=== PATIENT | female | born 1950 | race Two or more races ===

== ENCOUNTER 2017-01-28 12:45 | Inpatient (IN) | payer BC ==
[~2017-01-28] VITALS: Ht 160 cm; Wt 82.0 kg
[2017-01-28 12:57] VITALS: TEMP 98.4
[2017-01-28] MEDS ORDERED: SOD CHLORIDE 0.9% 1,000 ML IV STA ×2 (13:00→15:45)
[2017-01-28] MEDS ORDERED: DIPHENHYDRAMINE 50 MG INJ IV STA (13:00)
[2017-01-28] MEDS ORDERED: FAMOTIDINE 20 MG INJ IV ONE (13:00)
[2017-01-28] MEDS ORDERED: METHYLPREDNISOLONE 125 MG INJ IV STA (13:00)
[2017-01-28] MEDS ORDERED: ATEN50TA PO (13:45)
[2017-01-28] MEDS ORDERED: METF500T4 PO (13:45)
[2017-01-28] MEDS ORDERED: CHLO25TA13 PO (13:45)
[2017-01-28] MEDS ORDERED: LEVO50TA74 PO (13:46)
[2017-01-28] MEDS ORDERED: ASPI81TA3 PO (13:46)
[2017-01-28] MEDS ORDERED: MELO-109 PO (13:47)
[2017-01-28] MEDS ORDERED: LOSA100T7 PO (13:47)
[2017-01-28] MEDS ORDERED: IBUP200C11 PO (13:51)
[2017-01-28] MEDS ORDERED: EPINEPHrine 1 MG INJ SC STA (14:28)
--- NOTE | 2017-01-28 15:48 | ERA ---
ER Documentation Chief Complaint Date/Time DATE: 01/28/17 TIME: 15:43 Chief Complaint allergic reaction today HPI This is a 66-year-old female who presents to the emergency room for evaluation of an allergic reaction. This patient states that she was drinking tea and started to notice some lip swelling and itching in her arms. The patient states that her swelling worsened and became hard for her to breathe so she came to the emergency room for evaluation. The patient states that she is able to swallow however she was concerned because of lip swelling and came to the ER for evaluation. She denies any shortness of breath at this time ROS All systems reviewed and are negative except as per history of present illness. Medications Home Meds Reported Medications Ibuprofen* (Advil*) 200 Mg Capsule, 200 MG PO Q6H Y for PAIN, CAP 01/28/17 Meloxicam* (Meloxicam*) 7.5 Mg Tablet, 15 MG PO DAILY, #30 TAB 01/28/17 Losartan Potassium* (Losartan Potassium*) 100 Mg Tablet, 100 MG PO DAILY, TAB 01/28/17 Levothyroxine Sodium* (Levothyroxine Sodium*) 50 Mcg Tablet, 50 MCG PO BEFORE BREAKFAST, #30 TAB 01/28/17 Aspirin* (Aspirin* Chew) 81 Mg Tab.chew, 81 MG PO DAILY, TAB.CHEW 01/28/17 Metformin* (Glucophage*) 500 Mg Tab, 500 MG PO BID WITH MEALS, #30 TAB 01/28/17 Atenolol* (Atenolol*) 50 Mg Tablet, 50 MG PO DAILY, #30 TAB 01/28/17 Chlorthalidone* (Chlorthalidone*) 25 Mg Tablet, 25 MG PO DAILY, TAB 01/28/17 Allergies Allergies: Coded Allergies: No Known Allergy (Unverified , 01/28/17) PMhx/Soc History of Surgery: No Anesthesia Reaction: No Hx Neurological Disorder: No Hx Respiratory Disorders: No Hx Cardiac Disorders: Yes (HTN, CAD) Hx Psychiatric Problems: No Hx Miscellaneous Medical Probl: Yes (DM2, OA, Hypothyroid) Hx Alcohol Use: No Hx Substance Use: No Hx Tobacco Use: No Smoking Status: Never smoker Physical Exam Vitals Vital Signs Date Time Temp Pulse Resp B/P Pulse Ox O2 Delivery O2 Flow Rate FiO2 01/28/17 14:28 77 20 159/75 99 Room Air 01/28/17 12:57 98.4 54 20 169/88 98 Room Air 01/28/17 12:47 98.6 55 20 197/97 99 Physical Exam INITIAL VITAL SIGNS: Reviewed by me GENERAL: The patient is well developed and appropriate for usual state of health in no apparent distress HEENT: Soft tissue swelling of the left lower lip, no pharyngeal edema, pupils equal, round, and reactive to light. EOMI. There is no scleral icterus. NECK: C-spine is soft and supple, there is no meningismus. There is no cervical lymphadenopathy. LUNGS: Clear to auscultation bilaterally. There are no rales, wheezes or rhonchi. HEART: Regular rate and rhythm, no murmurs, clicks, rubs or gallops. ABDOMEN: Soft, non-tender, non-distended. There are bowel sounds in all four quadrants. No rebound or guarding. EXTREMITIES: There is no peripheral cyanosis or edema. No focal swelling or erythema. NEUROLOGICAL: The patient moves all four extremities with 5/5 strength. Cranial nerves II - XII are intact. Normal gait. Alert and oriented SKIN: Macular papular rash over the left and right upper extremity, no skin sloughing there is no apparent rash or petechiae. HEME/LYMPHATIC: There is no evidence of excessive bruising or lymphedema. PSYCHIATRIC: The patient does not appear anxious or depressed. Results 24 hrs Current Medications Medications (Trade) Dose Ordered Sig/Jose Luis Route PRN Reason Start Time Stop Time Status Last Admin Dose Admin Diphenhydramine HCl (Benadryl) 25 mg ONCE STAT IV 01/28/17 13:00 01/28/17 13:02 DC 01/28/17 13:19 Methylprednisolone Sodium Succinate 125 mg 125 mg ONCE STAT IV 01/28/17 13:00 01/28/17 13:02 DC 01/28/17 13:19 Sodium Chloride (NS) 1,000 ml @ 1,000 mls/hr Q1H STAT IV 01/28/17 13:00 01/28/17 13:59 DC 01/28/17 13:19 Famotidine (Pepcid Iv) 20 mg ONCE ONCE IV 01/28/17 13:00 01/28/17 13:02 DC 01/28/17 13:19 Epinephrine (EPINEPHrine) 0.3 mg ONCE STAT SC 01/28/17 14:28 01/28/17 14:29 DC 01/28/17 14:39 Procedures/MDM EKG: Rate/Rhythm: [Normal Sinus Rhythm] QRS, ST, T-waves: [No changes consistent w/ acute ischemia] Impression: [No evidence of ischemia or arrhythmia] Chest X-ray 1V Interpreted by me: Soft Tissue: No acute abnormalities Bones: No acute abnormalities Mediastinum/Cardiac Silhouette/Lungs: [No acute abnormalities] This 66-year-old female presents to the emergency room for evaluation of an allergic reaction to T. When I evaluated her she did have some soft tissue swelling and lip swelling. No tongue swelling or pharyngeal edema. This patient also had a maculopapular rash noted. I did give this patient Solu- Medrol, Pepcid, Benadryl and fluids. When I reevaluated this patient she stated that her itching has resolved however she is still having some swelling and she states that she feels that the swelling is starting to affect her cheek. The patient was subsequently given subcutaneous epinephrine. She will be kept in the hospital for observation overnight for anaphylaxis. No pharyngeal edema at this time, the patient is tolerating secretions, she is not hypoxic, and not posturing. Critical Care: Excluding all billable procedures Time: 32 minutes Treatments/Evaluations: Close monitoring and treatment of unstable vital signs, cardiorespiratory, and neurologic status, while maintaining tight balance of fluid, respiratory, and cardiac interventions. Departure Diagnosis: Primary Impression: Acute anaphylaxis Condition: Serious NARCISOGILBERT MASON January 28, 2017 15:48
[2017-01-28] MEDS ORDERED: ACETAMINOPHEN 325 MG TAB PO PRN (16:00)
[2017-01-28] MEDS ORDERED: ONDANSETRON 4 MG INJ IV PRN ×2 (16:00→16:30)
--- NOTE | 2017-01-28 16:24 | RADRPT ---
PROCEDURE: Chest x-ray CLINICAL INDICATION: Chest pain TECHNIQUE: Chest single view COMPARISON: None FINDINGS: There is mild cardiomegaly and atherosclerotic aortic calcification. The pulmonary vessels are norm al in caliber. The lungs are clear. The costophrenic angles are sharp. The visualized bony thorax is unremarkable. IMPRESSION: No acute cardiopulmonary disease. Mild cardiomegaly and atherosclerotic aortic calcification RPTAT: HH .Bonifacio Gutierrez MD, MD Date Time Electronically viewed and signed by .Bonifacio Gutierrez MD, MD on 01/28/2017 16:24 .W/
[2017-01-28 16:30] LABS: ADD SCAN DIFF NO
[2017-01-28] MEDS ORDERED: MAGNESIUM HYDROXIDE 30ML CUP PO PRN (16:30)
[2017-01-28] MEDS ORDERED: BISACODYL (EC) 5 MG TAB PO PRN (16:30)
[2017-01-28] MEDS ORDERED: hydrALAzine 20 MG INJ IV PRN (16:30)
[2017-01-28] MEDS ORDERED: morphine 2 MG INJ IV PRN (16:30)
[2017-01-28] MEDS ORDERED: HYDROCODONE/APAP (5/325) TAB PO PRN (16:30)
[2017-01-28] MEDS ORDERED: NACL 0.9% 3 ML SYG IV SCH (16:30)
[2017-01-28 16:31] LABS: ABNORMAL IP MESSAGE 1; BASOPHILS % 0.3 % (0.0-2.0); HEMATOCRIT 39.4 % (37.0-47.0); HEMOGLOBIN 12.8 g/dl (12.0-16.0); LYMPHOCYTES # 1.5 10^3/ul (0.8-2.9); LYMPHOCYTES % 13.5 % (15.0-51.0); MEAN CORPUSCULAR HEMOGLOBIN 29.1 pg (29.0-33.0); MEAN CORPUSCULAR HGB CONC 32.5 g/dl (32.0-37.0); MEAN CORPUSCULAR VOLUME 89.5 fl (82.0-101.0); MEAN PLATELET VOLUME 13.1 fl (7.4-10.4); MONOCYTE # 0.1 10^3/ul (0.3-0.9); MONOCYTES % 1.1 % (0.0-11.0); NEUTROPHIL # 9.4 10^3/ul (1.6-7.5); NEUTROPHILS % 84.6 % (39.0-77.0); PLATELET COUNT 149 10^3/UL (140-415); RED CELL DISTRIBUTION WIDTH 12.6 % (11.5-14.5); WHITE BLOOD COUNT 11.1 10^3/ul (4.8-10.8)
[2017-01-28 16:46] LABS: POTASSIUM 3.5 mmol/L (3.5-5.1)
[2017-01-28 16:48] LABS: CREATININE 0.88 mg/dl (0.44-1.00)
[2017-01-28 16:49] LABS: CALCIUM 8.9 mg/dl (8.4-10.2)
[2017-01-28] MEDS ORDERED: GLUCAGON 1 MG INJ IM PRN (17:00)
[2017-01-28] MEDS ORDERED: GLUCOSE GEL 15 GRAM TUBE PO PRN ×2 (17:00)
[2017-01-28] MEDS ORDERED: SOD CHLORIDE 0.9% 1,000 ML IV SCH (17:00)
[2017-01-28] MEDS ORDERED: DEXTROSE 50% 50 ML SYRINGE IV PRN ×2 (17:00)
[2017-01-28] MEDS ORDERED: GLUCOSE GEL 15 GRAM TUBE BUCCAL PRN (17:00)
[2017-01-28] MEDS: DIPHENHYDRAMINE 50 MG INJ IV SCH (17:38)
[2017-01-28] MEDS: metFORMIN 500 MG TAB PO SCH (17:42)
--- NOTE | 2017-01-28 17:43 | HP ---
DATE OF ADMISSION: 01/28/2017 REASON FOR ADMISSION: Brought in by EMS for sudden onset of angioedema. HISTORY OF PRESENT ILLNESS: This is a 66-year-old female with a past medical history of essential hypertension, type 2 diabetes mellitus, hypothyroidism and obesity, who suddenly started having dyspnea with wheezing, skin rashes, dysphagia and circumoral swelling after she drank some tea. Hence, the patient' s daycare called the paramedics and the patient was brought to the emergency room. The patient denied any similar episodes in the past. The patient denied taking any new medications. She denied eating anything unusual. The patient denied any bug bites or insect bites. In the emergency room, the patient was treated with IV Solu-Medrol, subcutaneous epinephrine and IV Benadryl along with IV famotidine with improvement in the patient's symptoms. The patient denied any chest pain. The patient denied any nausea, vomiting, abdominal pain , diarrhea, hematochezia, or dysuria. PAST MEDICAL HISTORY: Essential hypertension, diabetes mellitus type 2, hypothyroidism. PAST SURGICAL HISTORY: Denies. HOME MEDICATIONS: 1. Atenolol 50 mg p.o. daily. 2. Losartan 100 mg p.o. daily. 3. Aspirin 81 mg p.o. daily. 4. Ibuprofen 200 mg p.o. q.6h. p.r.n. pain. 5. Meloxicam 15 mg p.o. daily. 6. Chlorthalidone 25 mg p.o. daily. 7. Synthroid 50 mcg p.o. before breakfast. 8. Metformin 500 mEq p.o. b.i.d. ALLERGIES: NO KNOWN DRUG ALLERGIES. SOCIAL HISTORY: The patient lives at home with her family. The patient goes to an adult daycare center during morning time. Denies any use of tobacco, alcohol or illicit drugs. REVIEW OF SYSTEMS: A 12-point review of systems was made and the review of systems is negative other than what is mentioned in the history of present illness. PHYSICAL EXAMINATION: VITAL SIGNS: Temperature 98.4, pulse rate 60, respiratory rate 20, blood pressure 135/60, oxygen saturation 98% on room air. GENERAL: This is an obese female patient lying in bed in no apparent distress. HEENT: Head normocephalic and atraumatic. Eyes: Anicteric sclerae. Conjunctivae clear. ENT: Nasal septum is midline. Oral mucosa is moist, some lip swelling, especially on the left side. Tongue midline. No macroglossia. NECK: Short and obese. Unable to visualize any neck veins. RESPIRATORY: Bilateral diminished breath sounds. No wheezing heard. No use of accessory muscles of respiration. CARDIAC: Regular rate and rhythm. S1, S2 heard. ABDOMEN: Soft, nontender and nondistended. Bowel sounds positive in all 4 quadrants. GENITOURINARY: Deferred. EXTREMITIES: No cyanosis, no clubbing. Bilateral lower extremity 2+ edema. Peripheral pulses palpable. NEUROLOGIC: The patient is awake, alert and oriented. Cranial nerves are grossly intact. LABORATORY AND DIAGNOSTIC DATA: WBC 11.1, hemoglobin 12.8, hematocrit 39.4, platelet count 149. Sodium 139, potassium 3.5, chloride 101, creatinine 0.88. Chest x-ray: No acute cardiopulmonary disease. Mild cardiomegaly and atherosclerotic aortic calcification. IMPRESSION: This is a 66-year-old female who was brought to the emergency room because of sudden onset of angioedema, who will be admitted here for further treatment and evaluation. ASSESSMENT AND PLAN: 1. Acute allergic reaction with underlying angioedema. Etiology unclear. The patient was noticed to be taking ARBs, which will be discontinued. The patient will be started on a tapering dose of steroids along with histamine 2 and histamine 1 blockade. The patient's airway will be monitored closely. 2. Essential hypertension. The patient's antihypertensives will be resumed. However, the patient's ARBs will be put on hold. The patient will also be started on p.r.n. antihypertensives for any systolic blood pressure readings greater than 160 mmHg. 3. Type 2 diabetes mellitus. The patient was started on sliding scale insulin along with Lantus insulin and premeal insulin. Hemoglobin A1c will be obtained to evaluate the blood glucose control over the past few weeks. 4. Hypothyroidism. The patient's Synthroid will be resumed. Thyroid function study will be obtained. Plan. The patient will be admitted to inpatient telemetry floor. The patient will be started on a carbohydrate controlled diet. The patient will be started on DVT prophylaxis and gastrointestinal prophylaxis. The patient will remain a FULL CODE. Activities will be as tolerated. The rest of the patient's management will be based on the clinical course and the results of diagnostic studies. Based on the patient's clinical presentation, she most probably requires at least 1 midnight's stay for further management and evaluation of her clinical presentation. The case and management of this patient was fully discussed with Dr. Ascencio. LONDON ASCENCIO MD, AM/AARON Conf#: [id number] DID#: [id number] MTDD
[2017-01-28 17:44] VITALS: PULSE 63
[2017-01-28 18:00] VITALS: Ht 160 cm; Wt 82.0 kg
[2017-01-28] MEDS: INSULIN ASPART [NOVOLOG] 3 ML PEN SC SCH ×3 (18:54→21:47)
[2017-01-28] MEDS ORDERED: INSULIN GLARGINE [LANtus] 3 ML PEN SC SCH (20:00)
[2017-01-28 20:12] VITALS: BP 131/68; RESP 19
[2017-01-28 20:43] VITALS: PULSE 62
[2017-01-28] MEDS: METHYLPREDNISOLONE 40 MG INJ IV SCH (21:42)
[2017-01-28] MEDS: FAMOTIDINE 20 MG INJ IV SCH (21:44)
[2017-01-28] MEDS: NPH, HUMAN INSULIN ISOPHANE 3ML VIAL SC SCH (21:46)
[2017-01-28 23:43] VITALS: BP 145/70; RESP 19
[2017-01-29] VITALS (7 sets, daily range): BP systolic 120–145; BP diastolic 62–72; PULSE 63–72; RESP 18–20
[2017-01-29] MEDS: DIPHENHYDRAMINE 50 MG INJ IV SCH (06:03)
[2017-01-29] MEDS ORDERED: LEVOTHYROXINE 50 MCG TAB PO SCH (07:00)
[2017-01-29 07:35] LABS: ADD SCAN DIFF NO
[2017-01-29 07:41] LABS: ABNORMAL IP MESSAGE 1; BASOPHILS % 0.1 % (0.0-2.0); HEMATOCRIT 39.2 % (37.0-47.0); HEMOGLOBIN 12.6 g/dl (12.0-16.0); LYMPHOCYTES # 1.3 10^3/ul (0.8-2.9); LYMPHOCYTES % 13.3 % (15.0-51.0); MEAN CORPUSCULAR HEMOGLOBIN 28.7 pg (29.0-33.0); MEAN CORPUSCULAR HGB CONC 32.1 g/dl (32.0-37.0); MEAN CORPUSCULAR VOLUME 89.3 fl (82.0-101.0); MEAN PLATELET VOLUME 13.7 fl (7.4-10.4); MONOCYTE # 0.1 10^3/ul (0.3-0.9); MONOCYTES % 1.3 % (0.0-11.0); NEUTROPHIL # 8.3 10^3/ul (1.6-7.5); NEUTROPHILS % 84.6 % (39.0-77.0); PLATELET COUNT 151 10^3/UL (140-415); RED BLOOD COUNT 4.39 10^6/ul (4.20-5.40); RED CELL DISTRIBUTION WIDTH 12.7 % (11.5-14.5); WHITE BLOOD COUNT 9.8 10^3/ul (4.8-10.8)
[2017-01-29] MEDS: metFORMIN 500 MG TAB PO SCH (07:46)
[2017-01-29] MEDS: INSULIN ASPART [NOVOLOG] 3 ML PEN SC SCH ×4 (07:48→11:28)
[2017-01-29] MEDS: NPH, HUMAN INSULIN ISOPHANE 3ML VIAL SC SCH (07:50)
[2017-01-29 08:05] LABS: ALBUMIN 4.1 g/dl (3.3-4.9); ALBUMIN/GLOBULIN RATIO 1.1; BILIRUBIN,INDIRECT 0.1 mg/dl (0-1.1); BILIRUBIN,TOTAL 0.1 mg/dl (0.2-1.3); CALCIUM 9.2 mg/dl (8.4-10.2); CREATININE 0.93 mg/dl (0.44-1.00); POTASSIUM 4.3 mmol/L (3.5-5.1); TOTAL PROTEIN 7.8 g/dl (6.1-8.1)
[2017-01-29] MEDS: FAMOTIDINE 20 MG INJ IV SCH (08:44)
[2017-01-29] MEDS: METHYLPREDNISOLONE 40 MG INJ IV SCH (08:48)
[2017-01-29] MEDS ORDERED: ATENOLOL 50 MG TAB PO SCH (09:00)
[2017-01-29] MEDS ORDERED: CHLORTHALIDONE 25 MG TAB PO SCH (09:00)
[2017-01-29] MEDS ORDERED: ENOXAPARIN 40 MG/0.4 ML SYG SC SCH (09:00)
[2017-01-29 09:08] LABS: MAGNESIUM 1.7 mg/dl (1.7-2.5); PHOSPHORUS 2.5 mg/dl (2.5-4.9)
[2017-01-29 09:16] LABS: THYROID STIMULATING HORMONE 0.759 MIU/L (0.465-4.680)
[2017-01-29] MEDS ORDERED: MED4DP PO (14:06)
--- NOTE | 2017-01-29 14:14 | DS ---
Date/Time of Note Date/Time of Note DATE: 01/29/17 TIME: 14:07 Discharge Summary Admission/Discharge Info Admit Date/Time January 28, 2017 at 15:49 Discharge Date/Time Final Diagnosis 1. Acute allergic reaction with underlying angioedema. likely losartan related , stop losartan, medrol dose pack 2. Hypertension. controlled 3. Type 2 diabetes mellitus. on metformin, follow up with PCP 4. Hypothyroidism, on synthroid Patient Condition: Stable Hospital Course 66 years old female with HTN, DM, and hypothyroidism is put on losartan about 10 days ago. She developed generalized body rash, dyspnea with wheezing, skin rashes, dysphagia and circumoral swelling after she drank some tea. Patient is diagnosed with angioedema. Losartan is stopped, and she is put on soluMedrol. Symptoms totally improved today. Patient's blood pressure has been controlled without losartan. Patient, her , and her daughter are instructed to avoid losartan and related medications. Home Meds Active Scripts Methylprednisolone* (Medrol* DOSE PACK) 4 Mg/Dose-Pack Tab.ds.pk, 4 MG PO . DIRECTED, #1 PACKET Prov:JAIME HURTADO MD 01/29/17 Reported Medications Ibuprofen* (Advil*) 200 Mg Capsule, 200 MG PO Q6H Y for PAIN, CAP 01/28/17 Meloxicam* (Meloxicam*) 7.5 Mg Tablet, 15 MG PO DAILY, #30 TAB 01/28/17 Levothyroxine Sodium* (Levothyroxine Sodium*) 50 Mcg Tablet, 50 MCG PO BEFORE BREAKFAST, #30 TAB 01/28/17 Aspirin* (Aspirin* Chew) 81 Mg Tab.chew, 81 MG PO DAILY, TAB.CHEW 01/28/17 Metformin* (Glucophage*) 500 Mg Tab, 500 MG PO BID WITH MEALS, #30 TAB 01/28/17 Atenolol* (Atenolol*) 50 Mg Tablet, 50 MG PO DAILY, #30 TAB 01/28/17 Chlorthalidone* (Chlorthalidone*) 25 Mg Tablet, 25 MG PO DAILY, TAB 01/28/17 Discontinued Reported Medications Losartan Potassium* (Losartan Potassium*) 100 Mg Tablet, 100 MG PO DAILY, TAB 01/28/17 Follow-up Plan PCP in one week Primary Care Provider Sanaz Correa Pending Labs Laboratory Tests Test 01/28/17 16:20 01/28/17 17:30 01/28/17 21:38 01/29/17 06:36 White Blood Count 11.110^3/ul (4.8-10.8) 9.810^3/ul (4.8-10.8) Red Blood Count 4.4010^6/ul (4.20-5.40) 4.3910^6/ul (4.20-5.40) Hemoglobin 12.8g/dl (12.0-16.0) 12.6g/dl (12.0-16.0) Hematocrit 39.4% (37.0-47.0) 39.2% (37.0-47.0) Mean Corpuscular Volume 89.5fl (82.0-101.0) 89.3fl (82.0-101.0) Mean Corpuscular Hemoglobin 29.1pg (29.0-33.0) 28.7pg (29.0-33.0) Mean Corpuscular Hemoglobin Concent 32.5g/dl (32.0-37.0) 32.1g/dl (32.0-37.0) Red Cell Distribution Width 12.6% (11.5-14.5) 12.7% (11.5-14.5) Platelet Count 91449^3/UL (140-415) 34185^3/UL (140-415) Mean Platelet Volume 13.1fl (7.4-10.4) 13.7fl (7.4-10.4) Neutrophils % 84.6% (39.0-77.0) 84.6% (39.0-77.0) Lymphocytes % 13.5% (15.0-51.0) 13.3% (15.0-51.0) Monocytes % 1.1% (0.0-11.0) 1.3% (0.0-11.0) Eosinophils % 0.0% (0.0-7.0) 0.0% (0.0-7.0) Basophils % 0.3% (0.0-2.0) 0.1% (0.0-2.0) Nucleated Red Blood Cells % 0.0/100WBC (0.0-0.0) 0.0/100WBC (0.0-0.0) Neutrophils # 9.410^3/ul (1.6-7.5) 8.310^3/ul (1.6-7.5) Lymphocytes # 1.510^3/ul (0.8-2.9) 1.310^3/ul (0.8-2.9) Monocytes # 0.110^3/ul (0.3-0.9) 0.110^3/ul (0.3-0.9) Eosinophils # 0.010^3/ul (0.0-0.5) 0.010^3/ul (0.0-0.5) Basophils # 0.010^3/ul (0.0-0.1) 0.010^3/ul (0.0-0.1) Nucleated Red Blood Cells # 0.010^3/ul (0.0-0.0) 0.010^3/ul (0.0-0.0) Sodium Level 139mmol/L (135-144) 138mmol/L (135-144) Potassium Level 3.5mmol/L (3.5-5.1) 4.3mmol/L (3.5-5.1) Chloride Level 101mmol/L (97-110) 103mmol/L (97-110) Carbon Dioxide Level 22mmol/L (21-31) 24mmol/L (21-31) Anion Gap 20 (8-16) 15 (8-16) Blood Urea Nitrogen 17mg/dl (7-20) 20mg/dl (7-20) Creatinine 0.88mg/dl (0.44-1.00) 0.93mg/dl (0.44-1.00) Glucose Level 300mg/dl (70-220) 266mg/dl (70-220) Calcium Level 8.9mg/dl (8.4-10.2) 9.2mg/dl (8.4-10.2) Bedside Glucose 249mg/dL (70-220) 230mg/dL (70-220) Hemoglobin A1c 8.9% (0-5.9) Phosphorus Level 2.5mg/dl (2.5-4.9) Magnesium Level 1.7mg/dl (1.7-2.5) Total Bilirubin 0.1mg/dl (0.2-1.3) Direct Bilirubin 0.00mg/dl (0.00-0.20) Indirect Bilirubin 0.1mg/dl (0-1.1) Aspartate Amino Transf (AST/SGOT) 18IU/L (15-46) Alanine Aminotransferase (ALT/SGPT) 27IU/L (13-69) Alkaline Phosphatase 73IU/L (42-121) Total Protein 7.8g/dl (6.1-8.1) Albumin 4.1g/dl (3.3-4.9) Globulin 3.70g/dl (1.3-3.2) Albumin/Globulin Ratio 1.10 Triglycerides Level 125mg/dl (0-149) Cholesterol Level 255mg/dl (100-200) LDL Cholesterol, Calculated 167mg/dl HDL Cholesterol 63mg/dl (35-98) Cholesterol/HDL Ratio 4.0RATIO Thyroid Stimulating Hormone (TSH) 0.759MIU/L (0.465-4.680) Free Thyroxine 1.15ng/dl (0.78-2.44) Test 01/29/17 07:46 01/29/17 11:26 Bedside Glucose 235mg/dL (70-220) 243mg/dL (70-220) JAIME HURTADO MD January 29, 2017 14:14
[2017-01-29] MEDS ORDERED: ACETAMINOPHEN 325 MG TAB PO PRN (14:30)
== END 2017-01-29 15:02 | disposition home or self-care (01) | DRG 916 ==
LOC: EDSEX 12:45 → E/R 12:45 → MS4 15:49
PROVIDERS: ADMIT Family Medicine; ATTEND Family Medicine
DX: T88.6XXA Anaphylactic reaction due to adverse effect of correct drug or medicament properly administered, initial encounter (principal); I10 Essential (primary) hypertension; T46.5X5A Adverse effect of other antihypertensive drugs, initial encounter; E11.9 Type 2 diabetes mellitus without complications; E03.9 Hypothyroidism, unspecified; Z79.82 Long term (current) use of aspirin; Y84.8 Other medical procedures as the cause of abnormal reaction of the patient, or of later complication, without mention of misadventure at the time of the procedure; Y92.009 Unspecified place in unspecified non-institutional (private) residence as the place of occurrence of the external cause
CPT/HCPCS: 71010; 80048; 80053; 80061; 82785; 82962; 83036; 83735; 84100; 84439; 84443; 85025; 96361; 96372; 96374; 96375; J0171; J1200; J1650; J1815; J2920; J2930; J7030